=== PATIENT | male | born 1935 | race Caucasian/White ===

== ENCOUNTER → 2023-12-12 10:47 | Outpatient (REF) | payer OTHER, SELFPAY | LOC: HWRCS 10:47 | PROVIDERS: ATTENDING PHYSICIAN Internal Medicine Cardiovascular Disease; FAMILY PHYSICIAN Family Medicine | DX: I35.0 Nonrheumatic aortic (valve) stenosis (principal); I34.0 Nonrheumatic mitral (valve) insufficiency | CPT/HCPCS: 93306 ==

== ENCOUNTER 2024-05-14 11:18 | Emergency (ER) | payer OTHER, SELFPAY ==
[2024-05-14 11:26] VITALS: BP 133/63
[2024-05-14 11:43] LABS: Hematocrit 36.1 % (39.0-52.0); Hemoglobin 12.3 g/dL (13.0-18.0); Mean Corp Hgb Conc. 34.1 g/dL (33.0-37.0); Mean Corpuscular Hgb 30.8 pg (27.0-31.0); Mean Corpuscular Volume 90.3 fL (80.0-94.0); Mean Platelet Volume 10.1 fL (7.4-10.4); Platelet Count 297 10^3/uL (130-400); Red Cell Dist. Width 13.8 % (11.5-14.5); White Blood Cell Count 9.3 10^3/uL (4.8-10.8)
[2024-05-14 12:00] LABS: ALT (SGPT) 39 U/L (0-50); AST (SGOT) 31 U/L (17-59); Albumin 4.3 g/dl (3.5-5.0); Alkaline Phosphatase 88 U/L (38-126); Blood Urea Nitrogen 17 mg/dl (9-20); Calcium 9.9 mg/dl (8.4-10.2); Carbon Dioxide 27 mmol/L (22-30); Chloride 102 mmol/L (98-107); Glucose 125 mg/dl (70-99); Potassium 4.2 mmol/L (3.5-5.1); Sodium 140 mmol/L (135-145); Total Bilirubin 0.5 mg/dl (0.2-1.3); Total Protein 6.7 g/dl (6.3-8.2); eGFR > 60.00
[2024-05-14 12:05] LABS: Troponin I < 0.012 ng/ml
[2024-05-14 12:25] LABS: % Basophils 0.3 % (0-2); % Eosinophils 0.3 % (0-6); % Immature Granulocytes 0.3 % (0-0.5); % Lymphocytes 21.5 % (20.5-51.1); % Monocytes 4.6 % (1.7-9.3); Absolute Monocytes 0.4 10^3/uL (0.1-0.6); Absolute Neutrophils 6.8 10^3/uL (1.4-6.5); Nucleated Red Blood Cells % 0 % (-)
[2024-05-14 12:37] VITALS: BP 139/77
[2024-05-14 12:42] VITALS: BMI 24.1
[2024-05-14 13:00] VITALS: BP 126/60
--- NOTE | 2024-05-14 13:12 | ED.GENMED ---
History of Present Illness
General
Chief Complaint: Chest Pain
Time Seen by Provider: 05/14/24 12:38
History of Present Illness
History of Present Illness:
88-year-old male with history of TIA, anemia, GERD, hypertension presenting to the emergency department with left-sided chest pain. Patient reports symptoms started around 3 AM when he woke up to the bathroom. Pain is described as sharp in
quality. Pain is overall improved since onset, denies exertional component. Denies difficulty breathing. Denies any trauma to the chest, however does note increased physical exercise in the past 3 days. Denies fever or cough. Denies radiation
of pain. Denies abdominal pain or GI symptoms. Denies additional acute medical complaints
Past History
Past History
ED Past Medical History: Cancer (Testicular), GERD, HTN, Hypercholesterolemia and Other (Diverticulitis)
ED Past Surgical History: Orthopedic (Lumbar disc surgery ), Urological and Other (Left inguinal hernia repair )
Social History
Tobacco: Non-smoker
Living: with family
Family History
Family History: Negative Diabetes, Hypertension, Early CAD, Asthma or Cancer
Phy Exam
Physical Exam
Physical Exam:
General: Well-appearing, no clinical signs of dehydration, nontoxic and in no acute distress
HEENT: protecting airway
Neck: appears supple
CV: Normal heart rate, regular rhythm
Resp: No accessory muscle use, no increased work of breathing, lungs clear to auscultation bilaterally
Abd: Soft and non-distended, no tenderness to palpation
Extremities: No deformities, no swelling, no erythema
Neuro: alert, no focal neurologic deficit
: deferred
Rectal: deferred
Psych: Normal affect
Skin: Intact
Scores
Heart Score for Chest Pain Patients
STEMI patient?: No
History: Slightly or Non-Suspicious
ECG: Normal
Age: >/= 65 years
Risk Factors: 1 or 2 Risk Factors
Troponin: </= Normal Limit
Heart Score for Chest Pain Patients: 3
Heart Score Risk: 2.5% MACE over next 6 weeks
Course
Orders/Labs/Results
Orders:
Orders
05/14/24 11:19
Electrocardiogram (*1) Urgent
Reason for Study: Chest Pain
EKG- Treatment ONCE
05/14/24 11:33
Complete Blood Count/With Diff Urgent
Comprehensive Metabolic Panel Urgent
Troponin I Urgent
05/14/24 14:17
Troponin I Urgent
05/14/24 15:02
Electrocardiogram (*1) Stat
Reason for Study: Chest Pain
Electrocardiogram (*1) Urgent
Reason for Study: Chest Pain
EKG- Treatment ONCE
Abnormal Lab Results
05/14/24
11:33
RBC 4.00 L 10^6/uL
(4.70-6.10)
Hgb 12.3 L g/dL
(13.0-18.0)
Hct 36.1 L %
(39.0-52.0)
Absolute Neuts (auto) 6.8 H 10^3/uL
(1.4-6.5)
Glucose 125 H mg/dl
(70-99)
05/14/24 11:33
05/14/24 11:33
Vital Signs
Initial and Last Documented VS:
Initial Vital Signs
Temp Pulse Resp BP Pulse Ox
98.1 F 67 18 133/63 96
05/14/24 11:26 05/14/24 11:26 05/14/24 11:26 05/14/24 11:26 05/14/24 11:26
Last Documented Vital Signs
Temp Pulse Resp BP Pulse Ox
98.1 F 53 14 131/63 92
05/14/24 11:26 05/14/24 14:15 05/14/24 14:00 05/14/24 14:00 05/14/24 14:15
MDM/Problems Addressed
MDM/Problems Addressed:
88-year-old male with history of hypertension, anemia, TIA presenting to the emergency department left-sided chest pain since 3 AM this morning. Vital signs on arrival are normal.
On exam patient is well-appearing, no acute distress or discomfort. Patient notes his pain is overall improved from onset. EKG obtained, nonischemic without significant change from prior. Labs obtained prior to my assessment including troponin,
undetectable. At this time lower suspicion for ACS. On review of EMR, patient had a echo in November 2023, without significant acute abnormality. Patient also had a catheterization in 2019, did show some coronary artery disease, however
nonobstructive. Given known coronary disease, will plan for repeat troponin and EKG to ensure no interval changes. Without concern for PE, no respiratory symptoms or PE risk factors. Will continue close monitoring
15:30 - Repeat troponin and EKG within normal limits. At this time patient remains hemodynamically stable. Feel stable for discharge, however with close interval follow-up with his route service manager, Dr. Madison. Strict return precautions communicated
to patient who verbalized understanding
*EKG
Interpreted by ED Provider?: Yes
EKG Intrepretation Date: 05/14/24
EKG Intrepretation Time: 13:14
Interpretation: normal
Comparison EKG: no changes (04/24/23)
Heart Rate: 67
Rate: normal
Rhythm: sinus
[place]: normal axis
Interval: normal interval
QRS Pattern: normal QRS
Ischemia: no ischemia
*Critical Care Note
Total Time (30-74mins, 75-104mins- exclusive of procedures): Not Applicable
ED Attending Note
-
Portions of this chart may have been created with voice recognition software.� Occasional wrong word or��sound alike� substitutions may have occurred due to the inherent limitations of voice recognition software.
Discharge Plan
Departure
Patient Disposition: Home (Routine Discharge)
Date of Disposition: 05/14/24
Time of Disposition: 15:31
Patient with high blood pressure during this ER visit?: No
Condition: Good
Discharge Problem:
Chest pain
Instructions: Chest pain - Discharge instructions
Prescriptions:
No Action
tamsulosin 0.4 MG capsule
0.4 mg PO HS
pantoprazole 40 MG tablet,delayed release (DR/EC)
40 mg PO DAILY
finasteride 5 MG tablet
5 mg PO HS
escitalopram oxalate 10 MG tablet
10 mg PO DAILY
levothyroxine 25 MCG tablet
25 mcg PO DAILY
ezetimibe 10 MG tablet
10 mg PO DAILY
enalapril maleate [Vasotec] 20 MG tablet
20 mg PO BID Qty: 60 5RF
ferrous sulfate [FeroSul] 325 MG tablet
325 mg PO DAILY
clopidogrel [Plavix] 75 MG tablet
75 mg PO DAILY Qty: 30 2RF
aspirin 81 MG tablet,chewable
162 mg PO HS Qty: 0 0RF
Rx Instructions:
Last dose on February 17, 2022. STOP TAKING AFTER THAT.
Referrals:
Idris Fabian DO [Family Provider] -
Kyle Madison MD [Active] -
Activity Restrictions/Additional Instructions:
You were seen in the emergency department for chest pain
You were found to have normal EKG and laboratory analysis
Please follow-up closely with your primary care physician as well as her route service manager Dr. Madison
Return to the emergency department for any worsening of your symptoms, or any development of chest pain, difficulty breathing, abdominal pain with persistent vomiting and inability to tolerate food or liquid by mouth (concern for dehydration),
weakness, headache or confusion, fever greater than 100.4, or any additional symptoms that are concerning to you.
Thank you for choosing [facility].
Interventions
Interventions:
*Risk Screen - Suicide Last Done: 05/14/24 11:26
*General Assessment Last Done: 05/14/24 11:26
*Neglect/Abuse Screening Last Done: 05/14/24 11:26
*ED COVID-19 Vaccine History Last Done: 05/14/24 11:26
*Nursing Disposition Last Done: 05/14/24 16:04
ED- Cardiac Assessment Last Done: 05/14/24 13:49
Discharge Date and Time
Discharge Date/Time: 05/14/24 16:05
Print Language: [email or web address]
[2024-05-14 13:14] VITALS: BP 132/66
[2024-05-14 14:00] VITALS: BP 131/63
[2024-05-14 14:55] LABS: Troponin I < 0.012 ng/ml
== END 2024-05-14 16:05 | disposition home or self-care (01) ==
LOC: EMR 11:18
PROVIDERS: Emergency Medicine; EMERGENCY PHYSICIAN Student in an Organized Health Care Education/Training Program; FAMILY PHYSICIAN Family Medicine
DX: R07.89 Other chest pain (principal); E78.00 Pure hypercholesterolemia, unspecified; I25.10 Atherosclerotic heart disease of native coronary artery without angina pectoris; I10 Essential (primary) hypertension; K21.9 Gastro-esophageal reflux disease without esophagitis; Z86.73 Personal history of transient ischemic attack (TIA), and cerebral infarction without residual deficits
CPT/HCPCS: 99284; 80053; 84484; 85025; 93005

== ENCOUNTER → 2024-05-26 13:34 | Outpatient (REF) | payer OTHER, SELFPAY | LOC: RAD 13:34 | PROVIDERS: ATTENDING PHYSICIAN Surgery Vascular Surgery; FAMILY PHYSICIAN Family Medicine | DX: I65.23 Occlusion and stenosis of bilateral carotid arteries (principal) | CPT/HCPCS: 93880 ==

== ENCOUNTER → 2024-06-05 12:37 | Outpatient (REF) | payer OTHER, SELFPAY | LOC: HWRAD 12:37 | PROVIDERS: ATTENDING PHYSICIAN Specialist; FAMILY PHYSICIAN Family Medicine | DX: Z85.47 Personal history of malignant neoplasm of testis (principal) | CPT/HCPCS: 71260; 74177; Q9967 ==

== ENCOUNTER → 2024-12-23 08:42 | Outpatient (REF) | payer OTHER, SELFPAY | LOC: RAD 08:42 | PROVIDERS: ATTENDING PHYSICIAN Specialist; FAMILY PHYSICIAN Family Medicine | DX: C61 Malignant neoplasm of prostate (principal) | CPT/HCPCS: 78306; A9503 ==

== ENCOUNTER → 2025-01-13 14:43 | Outpatient (REF) | payer OTHER, SELFPAY | LOC: HWRCS 14:43 | PROVIDERS: ATTENDING PHYSICIAN Internal Medicine Cardiovascular Disease; FAMILY PHYSICIAN Family Medicine | DX: I35.0 Nonrheumatic aortic (valve) stenosis (principal); I34.0 Nonrheumatic mitral (valve) insufficiency; I25.10 Atherosclerotic heart disease of native coronary artery without angina pectoris | CPT/HCPCS: 93306 ==

== ENCOUNTER → 2025-05-24 12:44 | Outpatient (REF) | payer OTHER, SELFPAY | LOC: HWRCS 12:44 | PROVIDERS: ATTENDING PHYSICIAN Internal Medicine Cardiovascular Disease; FAMILY PHYSICIAN Family Medicine | DX: I35.0 Nonrheumatic aortic (valve) stenosis (principal); I34.0 Nonrheumatic mitral (valve) insufficiency | CPT/HCPCS: 93306 ==

== ENCOUNTER → 2025-06-04 10:31 | Outpatient (REF) | payer OTHER, SELFPAY | LOC: RAD 10:31 | PROVIDERS: ATTENDING PHYSICIAN Surgery Vascular Surgery | DX: I65.23 Occlusion and stenosis of bilateral carotid arteries (principal) | CPT/HCPCS: 93880 ==